=== PATIENT | male | born 2000 | race Caucasian/White ===

== ENCOUNTER 2024-10-20 17:42 | Emergency (ER) | payer OTHER, SELFPAY ==
[2024-10-20] VITALS (7 sets, daily range): BP systolic 102–116; BP diastolic 65–74; PULSE 67–94; RESP 14–20; TEMP 36.6; O2SAT 99–100
--- NOTE | ~2024-10-20 | CT_ITS ---
CT abdomen pelvis w con Ordering provider: Arina Hull PA-C History: 24 years Male with . LUQ and RUQ abd pain . Comparison: None. Technique: CT abdomen and pelvis with IV and without oral contrast. Automated exposure control and it erative reconstruction technique were employed. The dose-length product was 224.73 mGy-cm. 100 ML Omn ipaque 350 was given IV. Findings: VISUALIZED LOWER CHEST: Normal. UPPER ABDOMINAL ORGANS: Liver: Normal. Gallbladder: Normal. Spleen: Normal. Stomach/duodenum: Normal. Pancreas: Normal. Adrenals: Left adrenal adenoma measuring 9 mm. No follow-up unless clinically warranted. Kidneys: Normal. PELVIC ORGANS: The bladder is normal. BOWEL AND MESENTERY: Colon: No evidence of diverticulitis. Fluid content seen in the right side of the colon. Possibility of diarrhea is not excluded.. Normal appendix. Small Bowel: Normal. No obstruction. Peritoneum/mesentery: No free air or free fluid. No mesenteric lymphadenopathy. Small mesenteric lymp h nodes are noted largest measuring 1.3 cm.. RETROPERITONEUM: Normal aorta. No retroperitoneal lymphadenopathy. MUSCULOSKELETAL: Superficial soft tissues: The superficial soft tissues are normal. Bones: Normal spine. IMPRESSION: 1. No evidence of appendicitis, diverticulitis or intestinal obstruction. 2. Fluid content in the right side of the colon which may indicate diarrhea. Clinical correlation ad vised Reviewed, dictated and finalized at location A. IMPRESSION: 1. No evidence of appendicitis, diverticulitis or intestinal obstruction. 2. Fluid content in the right side of the colon which may indicate diarrhea. C linical correlation advised
--- NOTE | 2024-10-20 17:50 | ED_ITS ---
HPI - Abdominal Pain General Chief Complaint: Abdominal Pain <Arina Hull PA-C - Last Filed: 10/20/24 17:50> Stated Complaint: Vomiting x3, abd pain -sent by <Arina Hull PA-C - Last Filed: 10/20/24 17:50> Time Seen by Provider: 10/20/24 20:46 <Arina Hull PA-C - Last Filed: 10/20/24 17:50> Focused HPI: 24-year-old male with no past medical or surgical history presents to the emergency department for nausea, vomiting and abdominal pains that started this morning. Patient states the pain in his abdomen is intermittent, dull and sharp. He states it is in the bilateral upper quadrants. Denies alcohol or drug use including marijuana. Denies dysuria hematuria, diarrhea, fevers. GENERAL: Well-appearing, well-nourished, and in no acute distress. HEAD: Normocephalic, atraumatic. CHEST: Clear to auscultation. ?No respiratory distress. ABD: Tenderness to left upper quadrant, right upper quadrant minimally in the right lower quadrant no rebound, guarding or rigidity. No CVA tenderness HEART: Regular rate and rhythm.? NEURO: ?Alert and oriented x3. Patient screened in triage and initial orders placed.? ?Additional care and disposition to be based upon?diagnostic testing and treatment. <Arina Hull PA-C - Last Filed: 10/20/24 17:50> Related Data Allergies/Adverse Reactions: Allergies Allergy/AdvReac Type Severity Reaction Status Date / Time No Known Allergies Allergy Verified 10/20/24 17:43 <Arina Hull PA-C - Last Filed: 10/20/24 17:50> Review of Systems 2 Review of Systems: All systems reviewed & are unremarkable except as noted in HPI and below <Mague Santana APRN - Last Filed: 10/20/24 23:23> Exam 2 Narrative: GENERAL: Well-appearing, well-nourished, and in no acute distress. HEAD: Normocephalic, atraumatic. CHEST: Clear to auscultation. ?No respiratory distress. ABD: Tenderness to left upper quadrant, right upper quadrant minimally in the right lower quadrant no rebound, guarding or rigidity. No CVA tenderness HEART: Regular rate and rhythm.? NEURO: ?Alert and oriented x3. <Mague Santana, INSTRUCTIONAL MATERIALS DIRECTOR - Last Filed: 10/20/24 23:23> Course Vital Signs Vital signs: Vital Signs Temperature 36.6 C 10/20/24 17:46 Pulse Rate 94 10/20/24 17:46 Respiratory Rate 14 10/20/24 17:46 Blood Pressure 116/70 10/20/24 17:46 Pulse Oximetry 99 10/20/24 17:46 Temperature 36.6 C 10/20/24 17:46 Pulse Rate 93 10/20/24 22:01 Respiratory Rate 15 10/20/24 22:01 Blood Pressure 106/65 10/20/24 22:01 Pulse Oximetry 100 10/20/24 22:01 <Arina Hull PA-C - Last Filed: 10/20/24 17:50> Vital Signs Temperature 36.6 C 10/20/24 17:46 Pulse Rate 94 10/20/24 17:46 Respiratory Rate 14 10/20/24 17:46 Blood Pressure 116/70 10/20/24 17:46 Pulse Oximetry 99 10/20/24 17:46 Temperature 36.6 C 10/20/24 17:46 Pulse Rate 93 10/20/24 22:01 Respiratory Rate 15 10/20/24 22:01 Blood Pressure 106/65 10/20/24 22:01 Pulse Oximetry 100 10/20/24 22:01 <Mague Santana, INSTRUCTIONAL MATERIALS DIRECTOR - Last Filed: 10/20/24 23:23> MDM - Abdominal Pain MDM Narrative Medical decision making narrative: 24-year-old male with no past medical or surgical history presents to the emergency department for nausea, vomiting and abdominal pains that started this morning. Patient states the pain in his abdomen is intermittent, dull and sharp. He states it is in the bilateral upper quadrants. Denies alcohol or drug use including marijuana. Denies dysuria hematuria, diarrhea, fevers. Labs Ordered: CBC, CMP, UA Imaging Ordered: CT abdomen pelvis Medications Ordered: None necessary Results: Patient's CT scan indicates1. No evidence of appendicitis, diverticulitis or intestinal obstruction. 2. Fluid content in the right side of the colon which may indicate diarrhea. Clinical correlation advised Diagnosis: Viral gastroenteritis Patient Education/Shared MDM: Results shared with patient and his father. He reports most of his symptoms have resolved. Patient strongly advised to maintain hydration status upon discharge and follow-up with his PCP as soon as possible. He will be discharged home with no new prescriptions. Patient was offered prescription for Zofran and Bentyl but he declined. Strict return precautions provided. Patient verbalized understanding is in agreement with plan. Vital signs stable at time of discharge. All questions answered. <Mague Santana APRN - Last Filed: 10/20/24 23:23> Differential Diagnosis Differential diagnosis: Likely abdominal pain, acute appendicitis, constipation, diverticulitis, gastroenteritis and small bowel obstruction <Mague Santana APRN - Last Filed: 10/20/24 23:23> Lab Data Attestation: I reviewed the patient's lab results. <Mague Santana APRN - Last Filed: 10/20/24 23:23> Result diagrams: 10/20/24 17:57 10/20/24 17:57 <Arina Hull PA-C - Last Filed: 10/20/24 17:50> Labs: Lab Results 10/20/24 10/20/24 Range/Units 17:57 22:19 WBC 10.6 H (4.5-10.0) K/mm3 RBC 5.31 (4.6-6.20) M/mm3 Hgb 15.3 (14.0-18.0) g/dL Hct 43.7 (42.0-52.0) % MCV 82.3 (80-100) fl MCH 28.8 (26-34) pg MCHC 35.0 (32-36) g/dl RDW 12.8 (11.5-14.5) % Plt Count 249 (150-375) k/mm3 MPV 9.7 (7.4-10.4) fl Immature Gran % (Auto) 0.3 (0-0.5) % Neut % (Auto) 87.2 H (45.5-73.1) % Lymph % (Auto) 4.6 L (18.3-44.2) % Randolph % (Auto) 6.0 (2.6-8.5) % Eos % (Auto) 1.6 (0-4.4) % Baso % (Auto) 0.3 (0.2-1.2) % Lymph # (Auto) 0.49 L (0.9-3.2) K/mm3 Randolph # (Auto) 0.6 (0.1-0.6) K/mm3 Eos # (Auto) 0.2 (0-0.3) K/mm3 Baso # (Auto) 0.0 (0.0-0.1) K/mm3 Abs Immat Gran (auto) 0.03 (0.00-0.031) K/mm3 Absolute Neuts (auto) 9.2 H (1.3-6.7) K/mm3 Absolute Nucleated RBC 0.000 (0.0-0.012) K/mm3 Nucleated RBC % 0.0 (0.0-0.2) % Sodium 141 (137-145) mmol/L Potassium 3.8 (3.4-5.0) mmol/L Chloride 102 (98-107) mmol/L Carbon Dioxide 24 (22-30) mmol/L Anion Gap 15 H (4-12) mmol/L BUN 20 (9-20) mg/dL Creatinine 0.82 (0.7-1.3) mg/dL Estim Creat Clear Calc 117 ml/min Estimated GFR > 60 (59 - ) Glucose 114 H (65-110) mg/dL Calcium 9.5 (8.4-10.2) mg/dL Total Bilirubin 0.9 (0.2-1.3) mg/dL AST 26 (17-59) U/L ALT 23 (6-50) U/L Alkaline Phosphatase 80 (38-126) U/L Total Protein 8.0 (6.3-8.2) g/dL Albumin 5.2 H (3.5-5.1) g/dL Lipase 42 (23-300) U/L Urine Color Yellow (Yellow) Urine Appearance Clear (Clear) Urine pH 6.5 (5.0-9.0) Ur Specific [place] > 1.045 H (1.001-1.035) Urine Protein Trace (Negative) mg/dL Urine Glucose (UA) Negative (Negative) mg/dL Urine Ketones Negative (Negative) mg/dL Ur Blood (Man) Negative (Negative) Urine Nitrate Negative (Negative) Urine Bilirubin Negative (Negative) Urine Urobilinogen 0.2 (<2.0) mg/dL Leukocyte Esterase Rfl Negative (Negative) CINDY/UL Urine RBC 0-2 (0-2) /hpf Urine WBC 0-3 (0-3) /hpf Ur Squamous Epith Cells None seen (Few) /hpf Urine Bacteria None seen /hpf Urine Casts ---- <Arina Hull PA-C - Last Filed: 10/20/24 17:50> Lab Results 10/20/24 10/20/24 Range/Units 17:57 22:19 WBC 10.6 H (4.5-10.0) K/mm3 RBC 5.31 (4.6-6.20) M/mm3 Hgb 15.3 (14.0-18.0) g/dL Hct 43.7 (42.0-52.0) % MCV 82.3 (80-100) fl MCH 28.8 (26-34) pg MCHC 35.0 (32-36) g/dl RDW 12.8 (11.5-14.5) % Plt Count 249 (150-375) k/mm3 MPV 9.7 (7.4-10.4) fl Immature Gran % (Auto) 0.3 (0-0.5) % Neut % (Auto) 87.2 H (45.5-73.1) % Lymph % (Auto) 4.6 L (18.3-44.2) % Randolph % (Auto) 6.0 (2.6-8.5) % Eos % (Auto) 1.6 (0-4.4) % Baso % (Auto) 0.3 (0.2-1.2) % Lymph # (Auto) 0.49 L (0.9-3.2) K/mm3 [place] # (Auto) 0.6 (0.1-0.6) K/mm3 Eos # (Auto) 0.2 (0-0.3) K/mm3 Baso # (Auto) 0.0 (0.0-0.1) K/mm3 Abs Immat Gran (auto) 0.03 (0.00-0.031) K/mm3 Absolute Neuts (auto) 9.2 H (1.3-6.7) K/mm3 Absolute Nucleated RBC 0.000 (0.0-0.012) K/mm3 Nucleated RBC % 0.0 (0.0-0.2) % Sodium 141 (137-145) mmol/L Potassium 3.8 (3.4-5.0) mmol/L Chloride 102 (98-107) mmol/L Carbon Dioxide 24 (22-30) mmol/L Anion Gap 15 H (4-12) mmol/L BUN 20 (9-20) mg/dL Creatinine 0.82 (0.7-1.3) mg/dL Estim Creat Clear Calc 117 ml/min Estimated GFR > 60 (59 - ) Glucose 114 H (65-110) mg/dL Calcium 9.5 (8.4-10.2) mg/dL Total Bilirubin 0.9 (0.2-1.3) mg/dL AST 26 (17-59) U/L ALT 23 (6-50) U/L Alkaline Phosphatase 80 (38-126) U/L Total Protein 8.0 (6.3-8.2) g/dL Albumin 5.2 H (3.5-5.1) g/dL Lipase 42 (23-300) U/L Urine Color Yellow (Yellow) Urine Appearance Clear (Clear) Urine pH 6.5 (5.0-9.0) Ur Specific [place] > 1.045 H (1.001-1.035) Urine Protein Trace (Negative) mg/dL Urine Glucose (UA) Negative (Negative) mg/dL Urine Ketones Negative (Negative) mg/dL Ur Blood (Man) Negative (Negative) Urine Nitrate Negative (Negative) Urine Bilirubin Negative (Negative) Urine Urobilinogen 0.2 (<2.0) mg/dL Leukocyte Esterase Rfl Negative (Negative) CINDY/UL Urine RBC 0-2 (0-2) /hpf Urine WBC 0-3 (0-3) /hpf Ur Squamous Epith Cells None seen (Few) /hpf Urine Bacteria None seen /hpf Urine Casts ---- <Mague Santana APRN - Last Filed: 10/20/24 23:23> Imaging Data Attestation: I personally reviewed and interpreted this imaging study as follows: < Mague Santana APRN - Last Filed: 10/20/24 23:23> Radiologist's impression: ITS Impressions Abdomen/Pelvis CT 10/20/24 18:14 IMPRESSION: 1. No evidence of appendicitis, diverticulitis or intestinal obstruction. 2. Fluid content in the right side of the colon which may indicate diarrhea. Clinical correlation advised <Arina Hull PA-C - Last Filed: 10/20/24 17:50> ITS Impressions Abdomen/Pelvis CT 10/20/24 18:14 IMPRESSION: 1. No evidence of appendicitis, diverticulitis or intestinal obstruction. 2. Fluid content in the right side of the colon which may indicate diarrhea. Clinical correlation advised <Mague Santana APRN - Last Filed: 10/20/24 23:23> Discharge Plan Discharge Clinical Impression: Gastroenteritis <Arina Hull PA-C - Last Filed: 10/20/24 17:50> Patient Disposition: Home, Self-Care <Arina Hull PA-C - Last Filed: 10/20/24 17:50> Condition: Stable <Arina Hull PA-C - Last Filed: 10/20/24 17:50> Instructions: Antibiotic Form, Abdominal Pain (ED) <Arina Hull PA-C - Last Filed: 10/20/24 17:50> Additional Instructions: Please return to the ER with an worsening symptoms. Follow-up with primary care provider in the next 2-3 days. Take all Tylenol as needed for pain control. <Arina Hull PA-C - Last Filed: 10/20/24 17:50> Patient Language: German <Arina Hull PA-C - Last Filed: 10/20/24 17:50> Follow-up/Referrals: Nicki Hood MD [Primary Care Provider] - <Arina Hull PA-C - Last Filed: 10/20/24 17:50> Stand Alone Forms: Work/School Release IP <Arina Hull PA-C - Last Filed: 10/20/24 17:50> Time of Disposition: 23:23 <Arina Hull PA-C - Last Filed: 10/20/24 17:50> 23:23 <Mague Santana, INSTRUCTIONAL MATERIALS DIRECTOR - Last Filed: 10/20/24 23:23>
[2024-10-20 18:02] LABS: Basophils Percent Auto 0.3 % (0.2-1.2); Eosinophils Absolute Auto 0.2 K/mm3 (0-0.3); Eosinophils Percent Auto 1.6 % (0-4.4); Hematocrit 43.7 % (42.0-52.0); Hemoglobin 15.3 g/dL (14.0-18.0); Immature Granulocyte Absolute 0.03 K/mm3 (0.00-0.031); Immature Granulocyte Percent A 0.3 % (0-0.5); Lymphocytes Absolute Auto 0.49 K/mm3 (0.9-3.2); Lymphocytes Percent Auto 4.6 % (18.3-44.2); Mean Corpuscular Hemoglobin 28.8 pg (26-34); Mean Corpuscular Volume 82.3 fl (80-100); Mean Platelet Volume 9.7 fl (7.4-10.4); Monocytes Absolute Auto 0.6 K/mm3 (0.1-0.6); Neutrophils Absolute Auto 9.2 K/mm3 (1.3-6.7); Neutrophils Percent Auto 87.2 % (45.5-73.1); Platelet Count Result 249 k/mm3 (150-375); Red Blood Count 5.31 M/mm3 (4.6-6.20); Red Cell Distribution Width 12.8 % (11.5-14.5); White Blood Count 10.6 K/mm3 (4.5-10.0)
[2024-10-20 18:11] LABS: Alanine Aminotransferase 23 U/L (6-50); Albumin Level 5.2 g/dL (3.5-5.1); Alkaline Phosphatase 80 U/L (38-126); Anion Gap 15 mmol/L (4-12); Aspartate Amino Transferase 26 U/L (17-59); Bilirubin,Total 0.9 mg/dL (0.2-1.3); Blood Urea Nitrogen 20 mg/dL (9-20); Calcium 9.5 mg/dL (8.4-10.2); Carbon Dioxide 24 mmol/L (22-30); Chloride 102 mmol/L (98-107); Estimated CRCL calculation 117 ml/min; Estimated Glomerular Filt Rate > 60; Glucose 114 mg/dL (65-110); Lipase 42 U/L (23-300); Potassium 3.8 mmol/L (3.4-5.0); Sodium 141 mmol/L (137-145)
--- NOTE | 2024-10-20 20:48 | PC.NURSE ---
pt unable to urinate at this time. educated pt to use call light with any urge to provide UA
[2024-10-20 23:00] LABS: Add Urine Microscopic? YES; Appearance Urine Clear (Clear); Bilirubin Urine Negative (Negative); Blood Urine Negative (Negative); Color Urine Yellow (Yellow); Glucose Urine UA Negative (Negative); Ketones Urine Negative (Negative); Leukocyte Esterase Ur Negative LEU/UL (Negative); Nitrate Urine Negative (Negative); Protein Urine Trace mg/dL (Negative); RBC Urine 0-2 /hpf (0-2); Specific Grav Ur > 1.045 (1.001-1.035); Urobilinogen Urine 0.2 mg/dL (<2.0); pH Urine 6.5 (5.0-9.0)
[2024-10-20 23:01] LABS: Bacteria Urine None Seen /hpf; Squamous Epithelial Cell Urine None seen /hpf (Few); WBC Urine 0-3 /hpf (0-3)
[2024-10-21 14:08] LABS: Estimated CRCL calculation 107 ml/min; Estimated Glomerular Filt Rate > 60
== END 2024-10-20 23:38 | disposition home or self-care (01) ==
PROVIDERS: Physician Assistant; Emergency Provider Registered Nurse; PCP Family Medicine
DX: K52.9 Noninfective gastroenteritis and colitis, unspecified (principal)
CPT/HCPCS: 36415; 74177; 80053; 81001; 82565; 83690; 85025; 99284; Q9967